=== PATIENT | male | born 1950 | race Caucasian/White ===

== ENCOUNTER 2017-06-16 09:36 | Observation (INO) | payer MEDICARE, OTHER ==
[~2017-06-16] VITALS: Ht 200.7 cm; Wt 95.5 kg
[2017-06-16] VITALS (7 sets, daily range): BP systolic 124–168; BP diastolic 58–91; PULSE 59–84; RESP 18–20; TEMP 96.4–97.6; O2SAT 93–95
[~2017-06-16 09:36] MED LIST: CENTTAB9 PO
[2017-06-16] MEDS ORDERED: MULT-65 PO (09:48)
[2017-06-16 10:09] LABS: AUTOMATED NEUTROPHIL # 5.3 TH/MM3 (1.8-7.7); BASOPHIL % 0.5 % (0.0-2.0); EOSINOPHIL # 0.2 TH/MM3 (0-0.4); HEMATOCRIT 48.5 % (39.0-51.0); HEMOGLOBIN 16.6 GM/DL (13.0-17.0); LYMPH % 19.2 % (9.0-44.0); LYMPHOCYTE # 1.5 TH/MM3 (1.0-4.8); MEAN CELL VOLUME 93.4 FL (80.0-100.0); MEAN CORPUSCULAR HEMOGLOBIN 31.9 PG (27.0-34.0); MEAN CORPUSCULAR HGB CONC 34.2 % (32.0-36.0); MEAN PLATELET VOLUME 8.1 FL (7.0-11.0); MONO % 7.6 % (0.0-8.0); MONOCYTE # 0.6 TH/MM3 (0-0.9); NEUT % 70.7 % (16.0-70.0); PLATELET COUNT 199 TH/MM3 (150-450); RED BLOOD COUNT 5.19 MIL/MM3 (4.50-5.90); RED CELL DISTRIBUTION WIDTH 12.7 % (11.6-17.2); WHITE BLOOD COUNT 7.6 TH/MM3 (4.0-11.0)
[2017-06-16 10:25] LABS: CHLORIDE 107 MEQ/L (98-107); SODIUM (NA) 140 MEQ/L (136-145)
[2017-06-16 10:30] LABS: ALBUMIN 3.6 GM/DL (3.4-5.0); BICARBONATE 23.3 MEQ/L (21.0-32.0); BLOOD UREA NITROGEN 19 MG/DL (7-18); GLUCOSE,RANDOM 112 MG/DL (74-106)
[2017-06-16 10:33] LABS: ALT (GPT) 23 U/L (12-78); AST (GOT) 16 U/L (15-37)
[2017-06-16 10:34] LABS: TOTAL BILIRUBIN ADULT 0.7 MG/DL (0.2-1.0); TOTAL PROTEIN 7.1 GM/DL (6.4-8.2)
[2017-06-16 10:35] LABS: GLOMERULAR FILTRATION RATE 67 ML/MIN (>89)
[2017-06-16 10:36] LABS: ALKALINE PHOSPHATASE 85 U/L (45-117)
--- NOTE | 2017-06-16 10:36 | RADRPT ---
EXAM DATE/TIME: 06/16/2017 10:15 [facility] COMPARISON: No previous studies available for comparison. INDICATIONS : Dizziness with nausea and headache this am . RADIATION DOSE: 57.44 CTDIvol (mGy) MEDICAL HISTORY : Gastroesophageal reflux disease. SURGICAL HISTORY : None. ENCOUNTER: Initial ACUITY: 1 day PAIN SCALE: 5/10 LOCATION: Bilateral cranial TECHNIQUE: Multiple contiguous axial images were obtained of the head. Using automated exposure control and adj ustment of the mA and/or kV according to patient size, radiation dose was kept as low as reasonably a chievable to obtain optimal diagnostic quality images. DICOM format image data is available electro nically for review and comparison. FINDINGS: CEREBRUM: The ventricles are normal for age. No evidence of midline shift, mass lesion, hemorrhage or acute in farction. No extra-axial fluid collections are seen. POSTERIOR FOSSA: The cerebellum and brainstem are intact. The 4th ventricle is midline. The cerebellopontine angle i s unremarkable. EXTRACRANIAL: The visualized portion of the orbits is intact. SKULL: The calvaria is intact. No evidence of skull fracture. CONCLUSION: Normal examination for a patient of this age. Santos Gonzalez MD on June 16, 2017 at 10:33 Board Certified Radiologist. This report was verified electronically.
[2017-06-16 10:38] LABS: TROPONIN I LESS THAN 0.02 NG/ML (0.02-0.05)
[2017-06-16 10:58] LABS: BILIRUBIN, URINE NEG (NEG); BLOOD, URINE NEG (NEG); GLUCOSE,URINE NEG (NEG); KETONE, URINE NEG (NEG); NITRITE,URINE NEG (NEG); PH, URINE 6.5 (5.0-8.5); URINE COLOR YELLOW (YELLW/STRAW); URINE LEUKOCYTE ESTERASE NEG (NEG)
[2017-06-16 11:05] LABS: RBC, URINE 0-3 /hpf (0-3); SQUAMOUS EPITHELIAL CELL URINE 0-5 /hpf (0-5)
--- NOTE | 2017-06-16 11:05 | RADRPT ---
EXAM DATE/TIME: 06/16/2017 10:35 [facility] COMPARISON: No previous studies available for comparison. INDICATIONS : Dizziness, nausea, headache, left side neck pain. MEDICAL HISTORY : None. SURGICAL HISTORY : None. ENCOUNTER: Initial ACUITY: 1 day PAIN SCORE: 0/10 LOCATION: Bilateral chest FINDINGS: A single view of the chest demonstrates the lungs to be symmetrically aerated without evidence of mas s, infiltrate or effusion. Hyperaeration of both lung kelly. The cardiomediastinal contours are unre markable. Osseous structures are intact. CONCLUSION: No acute disease. Santos Gonzalez MD on June 16, 2017 at 11:03 Board Certified Radiologist. This report was verified electronically.
[2017-06-16] MEDS ORDERED: NALOXONE HCL 0.4 MG/ML AMP IV PUSH PRN (11:45)
[2017-06-16] MEDS ORDERED: SODIUM CHLORIDE 0.9% FLUSH 10 ML FLUSH IV FLUSH PRN (11:45)
[2017-06-16] MEDS ORDERED: ONDANSETRON HCL 4 MG/2 ML VIAL IVP PRN (11:45)
[2017-06-16] MEDS ORDERED: MAGNESIUM HYDROXIDE SUSP 30 ML CUP PO PRN (11:45)
--- NOTE | 2017-06-16 11:58 | PD ---
HPI Chief Complaint: Dizziness Time Seen by Provider: 09:41 Travel History International Travel<30 days: No Contact w/Intl Traveler<30days: No Traveled to known affect area: No History of Present Illness HPI This is a 67-year-old otherwise healthy male presented to the ER for dizziness. Patient states that he felt dizzy and spinning sensation this morning, lasted for about 5 minutes and then went away. Patient was afraid to fall so he "crawled" to open the door for paramedics and called 911. Patient reports that he felt dizzy yesterday as well by going away on its own. Patient states no blurred vision or headache or fever. He denies any chest pain or shortness of breath. Patient denies any palpitations or chest pain when the episodes comes PFS Past Medical History Arthritis: Yes Cancer: No Cardiovascular Problems: No Diabetes: No Glaucoma: No Gout: Yes Genitourinary: No Hepatitis: No Hiatal Hernia: No Hypertension: No Immune Disorder: No Medical other: Yes (LEFT EYE BLINDNESS FROM ) Musculoskeletal: Yes Neurologic: No Psychiatric: No Reproductive: No Respiratory: No Thyroid Disease: No Influenza Vaccination: Yes Past Surgical History Abdominal Surgery: No Cardiac Surgery: No Ear Surgery: No Endocrine Surgery: No Eye Surgery: No Genitourinary Surgery: No Gynecologic Surgery: No Oral Surgery: Yes (TEETH REMOVAL) Pacemaker: No Thoracic Surgery: No Other Surgery: Yes (HAND) Social History Alcohol Use: No Tobacco Use: No Substance Use: No Allergies-Medications (Allergen,Severity, Reaction): Coded Allergies: No Known Allergies (Verified Adverse Reaction, Unknown, 06/16/17) Reported Meds & Prescriptions Reported Meds & Active Scripts Active Reported Multi-Vitamin Daily (Multiple Vitamin) 1 Tab Tab 1 Tab PO DAILY Review of Systems Except as stated in HPI: all other systems reviewed are Neg Physical Exam Narrative GENERAL: Alert oriented 3 no acute distress SKIN: Focused skin assessment warm/dry. HEAD: Atraumatic. Normocephalic. EYES: Pupils equal and round. No scleral icterus. No injection or drainage. ENT: No nasal bleeding or discharge. Mucous membranes pink and moist. NECK: Trachea midline. No JVD. CARDIOVASCULAR: Regular rate and rhythm. No murmur appreciated. RESPIRATORY: No accessory muscle use. Clear to auscultation. Breath sounds equal bilaterally. GASTROINTESTINAL: Abdomen soft, non-tender, nondistended. Hepatic and splenic margins not palpable. MUSCULOSKELETAL: No obvious deformities. No clubbing. No cyanosis. No edema. NEUROLOGICAL: Awake and alert. No obvious cranial nerve deficits. Motor grossly within normal limits. Normal speech. PSYCHIATRIC: Appropriate mood and affect; insight and judgment normal. Data Data Last Documented VS Vital Signs Date Time Temp Pulse Resp B/P (MAP) Pulse Ox O2 Delivery O2 Flow Rate FiO2 06/16/17 10:07 84 18 158/70 (99) 93 Room Air 06/16/17 09:40 97.6 Orders Orders Complete Blood Count With Diff (06/16/17 09:53) Comprehensive Metabolic Panel (06/16/17 09:53) Troponin I (06/16/17 09:53) Urinalysis - C+S If Indicated (06/16/17 09:53) Chest, Single Ap (06/16/17 ) Ct Brain W/O Iv Contrast(Rout) (06/16/17 ) Admit Order (Ed Use Only) (06/16/17 11:41) Place In Observation (06/16/17 ) Vital Signs (Adult) Q4H (06/16/17 11:40) Activity Oob With Assistance (06/16/17 11:40) Digging Machine Operator / Telemetry .CONTINUOUS (06/16/17 11:40) Diet Heart Healthy (06/16/17 Lunch) Sodium Chloride 0.9% Flush (Ns Flush) (06/16/17 11:45) Sodium Chloride 0.9% Flush (Ns Flush) (06/16/17 21:00) Ondansetron Inj (Zofran Inj) (06/16/17 11:45) Comprehensive Metabolic Panel (06/17/17 06:00) Complete Blood Count With Diff (06/17/17 06:00) Enoxaparin Inj (Lovenox Inj) (06/16/17 11:45) Scd Bilateral/Knee High NATHAN.BID (06/16/17 11:40) Naloxone Inj (Narcan Inj) (06/16/17 11:45) Magnesium Hydroxide Liq (Milk Of Magnesi (06/16/17 11:45) Consult Cardiology (06/16/17 ) Labs Laboratory Tests Test 06/16/17 10:03 06/16/17 10:51 White Blood Count 7.6 TH/MM3 Red Blood Count 5.19 MIL/MM3 Hemoglobin 16.6 GM/DL Hematocrit 48.5 % Mean Corpuscular Volume 93.4 FL Mean Corpuscular Hemoglobin 31.9 PG Mean Corpuscular Hemoglobin Concent 34.2 % Red Cell Distribution Width 12.7 % Platelet Count 199 TH/MM3 Mean Platelet Volume 8.1 FL Neutrophils (%) (Auto) 70.7 % Lymphocytes (%) (Auto) 19.2 % Monocytes (%) (Auto) 7.6 % Eosinophils (%) (Auto) 2.0 % Basophils (%) (Auto) 0.5 % Neutrophils # (Auto) 5.3 TH/MM3 Lymphocytes # (Auto) 1.5 TH/MM3 Monocytes # (Auto) 0.6 TH/MM3 Eosinophils # (Auto) 0.2 TH/MM3 Basophils # (Auto) 0.0 TH/MM3 CBC Comment DIFF FINAL Differential Comment Blood Urea Nitrogen 19 MG/DL Creatinine 1.10 MG/DL Random Glucose 112 MG/DL Total Protein 7.1 GM/DL Albumin 3.6 GM/DL Calcium Level 9.0 MG/DL Alkaline Phosphatase 85 U/L Aspartate Amino Transf (AST/SGOT) 16 U/L Alanine Aminotransferase (ALT/SGPT) 23 U/L Total Bilirubin 0.7 MG/DL Sodium Level 140 MEQ/L Potassium Level 4.0 MEQ/L Chloride Level 107 MEQ/L Carbon Dioxide Level 23.3 MEQ/L Anion Gap 10 MEQ/L Estimat Glomerular Filtration Rate 67 ML/MIN Troponin I LESS THAN 0.02 NG/ML Urine Collection Type CLEAN CATCH Urine Color YELLOW Urine Turbidity CLEAR Urine pH 6.5 Urine Specific [place] 1.020 Urine Protein NEG mg/dL Urine Glucose (UA) NEG mg/dL Urine Ketones NEG mg/dL Urine Occult Blood NEG Urine Nitrite NEG Urine Bilirubin NEG Urine Urobilinogen 0.2 MG/DL Urine Leukocyte Esterase NEG Urine RBC 0-3 /hpf Urine Squamous Epithelial Cells 0-5 /hpf Microscopic Urinalysis Comment CULT NOT INDICATED Urine Collection Time 10:51 MDM Medical Decision Making Medical Screen Exam Complete: Yes Emergency Medical Condition: Yes Differential Diagnosis Arrhythmia, AV block, sick sinus syndrome, metabolic disturbance, sinus bradycardia. Narrative Course This is a 67-year-old male presented the ER complaining of dizziness episodes that has been going on for last 2 days. Patient had EKG here in the ER Q waves in leads V3 V4. Patient was here before for arrhythmia back in 2012 and he was evaluated for possible pacemaker. During this ER visit patient had one episode of bradycardia/arrhythmia on the Holter monitor that lasted for a few seconds patient will be admitted for further cardiac evaluation although patient did not have any symptoms during that episode. Patient will be admitted for further cardiac workup and possible pacemaker if needed. Diagnosis Primary Impression: Arrhythmia Qualified Codes: I49.9 - Cardiac arrhythmia, unspecified Additional Impression: Dizziness Admitting Information Admitting Physician Requests: Observation Condition: Stable Geovany Peterson MD Jun 16, 2017 11:58
[2017-06-16] MEDS: ENOXAPARIN SODIUM 40 MG/0.4 ML SYRINGE SQ SCH (12:26)
--- NOTE | 2017-06-16 13:40 | HHI.HP ---
[facility] Service [place] [facility] Primary Care Physician Unknown Admission Diagnosis DIZZINESS, DYSRHYSMIA Diagnoses: (1) Arrhythmia Diagnosis: Principal (2) Dizziness Diagnosis: Principal Travel History International Travel<30 Days: No Contact w/Intl Traveler <30 Da: No Traveled to Known Affected Are: No History of Present Illness Mr. Pope is a 67-year-old male. He was admitted secondary to dizziness. He has a past history of bradycardia which was borderline for qualification of pacemaker placement. At that time he was asymptomatic so it was opted to not place the pacemaker. He's been having dizzy episodes again. This may be related to recurrence of his bradycardia. His last episode was after he reported to the ER but he was not yet hooked up on telemetry. He has not had any symptoms since. Further monitoring is warranted. I do notice that he is having bradycardic pauses but his lowest rate that I have seen is in the 50s on telemetry and he is not reporting any symptoms during these pauses. He is being converted over to formal telemetry so that I can measure the duration of his pauses. No other complaints from the patient. No chest pain. Review of Systems Constitutional: DENIES: Fatigue, Fever, Chills Eyes: DENIES: Diplopia, Eye inflammation, Eye pain Ears, nose, mouth, throat: DENIES: Hearing loss, Vertigo, Nasal discharge Respiratory: DENIES: Cough, Wheezing, Shortness of breath Cardiovascular: DENIES: Chest pain, Palpitations, Syncope Gastrointestinal: DENIES: Abdominal pain, Black stools, Bloody stools Musculoskeletal: DENIES: Joint pain, Muscle aches, Stiffness, Joint Swelling, Back pain, Neck pain Integumentary: DENIES: Abnormal pigmentation, Nail changes, Pruritus, Rash Hematologic/lymphatic: DENIES: Bruising, Lymphadenopathy Immunologic/allergic: DENIES: Eczema, Urticaria Neurologic: DENIES: Abnormal gait, Headache, Paresthesias Psychiatric: DENIES: Anxiety, Confusion, Hallucinations Past Family Social History Past Medical History Neck Pain Hx of Bradycardic Arrhythmia Past Surgical History None Reported Medications Reported Meds & Active Scripts Active Reported Multi-Vitamin Daily (Multiple Vitamin) 1 Tab Tab 1 Tab PO DAILY Allergies: Coded Allergies: No Known Allergies (Verified Adverse Reaction, Unknown, 06/16/17) Active Ordered Medications Administered Medications Medications (Trade) Dose Ordered Sig/Dhaval Route PRN Reason Start Time Stop Time Status Last Admin Dose Admin Enoxaparin Sodium (Lovenox Inj) 40 mg Q24H SQ 06/16/17 12:00 06/16/17 12:26 Family History No diseases run in this patient's family Social History No smoking No alcohol abuse No illicit drug abuse Physical Exam Vital Signs Vital Signs Date Time Temp Pulse Resp B/P (MAP) Pulse Ox O2 Delivery O2 Flow Rate FiO2 06/16/17 12:11 06/16/17 12:10 70 18 168/80 (109) 94 Room Air 06/16/17 12:00 96.4 79 18 156/85 (108) 95 06/16/17 10:07 84 18 158/70 (99) 93 Room Air 06/16/17 09:44 68 Room Air 06/16/17 09:40 97.6 68 18 151/91 (111) 94 Physical Exam GENERAL: NAD, A&Ox3 HEAD: Normocephalic. NECK: Supple, trachea midline. No lymphadenopathy. EYES: No scleral icterus. No injection or drainage. CARDIOVASCULAR: Regular rate and rhythm without murmurs, gallops, or rubs. Cardiac Pauses intermittently. RESPIRATORY: Breath sounds equal bilaterally. No accessory muscle use. GASTROINTESTINAL: Abdomen soft, non-tender, nondistended. MUSCULOSKELETAL: No cyanosis, or edema. SKIN: Warm and dry. NEURO: No focal neurological deficitis. Laboratory Laboratory Tests Test 06/16/17 10:03 06/16/17 10:51 White Blood Count 7.6 Red Blood Count 5.19 Hemoglobin 16.6 Hematocrit 48.5 Mean Corpuscular Volume 93.4 Mean Corpuscular Hemoglobin 31.9 Mean Corpuscular Hemoglobin Concent 34.2 Red Cell Distribution Width 12.7 Platelet Count 199 Mean Platelet Volume 8.1 Neutrophils (%) (Auto) 70.7 Lymphocytes (%) (Auto) 19.2 Monocytes (%) (Auto) 7.6 Eosinophils (%) (Auto) 2.0 Basophils (%) (Auto) 0.5 Neutrophils # (Auto) 5.3 Lymphocytes # (Auto) 1.5 Monocytes # (Auto) 0.6 Eosinophils # (Auto) 0.2 Basophils # (Auto) 0.0 CBC Comment DIFF FINAL Differential Comment Blood Urea Nitrogen 19 Creatinine 1.10 Random Glucose 112 Total Protein 7.1 Albumin 3.6 Calcium Level 9.0 Alkaline Phosphatase 85 Aspartate Amino Transf (AST/SGOT) 16 Alanine Aminotransferase (ALT/SGPT) 23 Total Bilirubin 0.7 Sodium Level 140 Potassium Level 4.0 Chloride Level 107 Carbon Dioxide Level 23.3 Anion Gap 10 Estimat Glomerular Filtration Rate 67 Troponin I LESS THAN 0.02 Urine Collection Type CLEAN CATCH Urine Color YELLOW Urine Turbidity CLEAR Urine pH 6.5 Urine Specific [place] 1.020 Urine Protein NEG Urine Glucose (UA) NEG Urine Ketones NEG Urine Occult Blood NEG Urine Nitrite NEG Urine Bilirubin NEG Urine Urobilinogen 0.2 Urine Leukocyte Esterase NEG Urine RBC 0-3 Urine Squamous Epithelial Cells 0-5 Microscopic Urinalysis Comment CULT NOT INDICATED Urine Collection Time 10:51 Result Diagram: 06/16/17 1003 06/16/17 1003 Caprini VTE Risk Assessment Caprini VTE Risk Assessment: No/Low Risk (score <= 1) Caprini Risk Assessment Model Point Value = 1 Point Value = 2 Point Value = 3 Point Value = 5 Age 41-60 Minor surgery BMI > 25 kg/m2 Swollen legs Varicose veins or History of unexplained or recurrent spontaneous Oral contraceptives or hormone replacement Sepsis (< 1 month) Serious lung disease, including pneumonia (< 1 month) Abnormal pulmonary function Acute myocardial infarction Congestive heart failure (< 1 month) History of inflammatory bowel disease Medical patient at bed rest Age 61-74 Arthroscopic surgery Major open surgery (> 45 min) Laparoscopic surgery (> 45 min) Malignancy Confined to bed (> 72 hours) Immobilizing plaster cast Central venous access Age >= 75 History of VTE Family history of VTE Factor V Leiden Prothrombin [id number] Lupus anticoagulant Anticardiolipin antibodies Elevated serum homocysteine Heparin-induced thrombocytopenia Other congenital or acquired thrombophilia Stroke (< 1 month) Elective arthroplasty Hip, pelvis, or leg fracture Acute spinal cord injury (< 1 month) Prophylaxis Regimen Total Risk Factor Score Risk Level Prophylaxis Regimen 0-1 Low Early ambulation 2 Moderate Order ONE of the following: *Sequential Compression Device (SCD) *Heparin 5000 units SQ BID 3-4 Higher Order ONE of the following medications: *Heparin 5000 units SQ TID *Enoxaparin/Lovenox 40 mg SQ daily (WT < 150 kg, CrCl > 30 mL/min) *Enoxaparin/Lovenox 30 mg SQ daily (WT < 150 kg, CrCl > 10-29 mL/min) *Enoxaparin/Lovenox 30 mg SQ BID (WT < 150 kg, CrCl > 30 mL/min) AND/OR *Sequential Compression Device (SCD) 5 or more Highest Order ONE of the following medications: *Heparin 5000 units SQ TID (Preferred with Epidurals) *Enoxaparin/Lovenox 40 mg SQ daily (WT < 150 kg, CrCl > 30 mL/min) *Enoxaparin/Lovenox 30 mg SQ daily (WT < 150 kg, CrCl > 10-29 mL/min) *Enoxaparin/Lovenox 30 mg SQ BID (WT < 150 kg, CrCl > 30 mL/min) AND *Sequential Compression Device (SCD) Assessment and Plan Problem List: (1) Arrhythmia ICD Code: I49.9 - Cardiac arrhythmia, unspecified Status: Acute (2) Dizziness ICD Code: R42 - Dizziness and giddiness Status: Acute Assessment and Plan 67-year-old male admitted secondary to bradycardic arrhythmia. Symptoms of dizziness. Bradycardic arrhythmia Follow on telemetry Depending on findings, transfer to [facility] if pacemaker placement needed Avoid beta blockers Cardiology consulted No chest pain Follow for further dizziness Chronic Neck Pain As needed pain treatments, if needed. DVT Prophylaxis Lovenox Problem Qualifiers (1) Arrhythmia: Qualified Codes: I49.9 - Cardiac arrhythmia, unspecified Yared Briggs MD Jun 16, 2017 13:40
[2017-06-16] MEDS: SODIUM CHLORIDE 0.9% FLUSH 10 ML FLUSH IV FLUSH SCH (21:16)
[2017-06-17] VITALS: BP 123/61; PULSE 69; RESP 20; TEMP 97.5; O2SAT 99
[2017-06-17 04:00] VITALS: BP 136/65; PULSE 53; RESP 20; TEMP 96.1; O2SAT 94
[2017-06-17 06:39] LABS: BASOPHIL % 0.4 % (0.0-2.0); EOSINOPHIL # 0.2 TH/MM3 (0-0.4); EOSINOPHIL % 2.2 % (0.0-4.0); HEMATOCRIT 47.7 % (39.0-51.0); HEMOGLOBIN 15.8 GM/DL (13.0-17.0); LYMPH % 22.9 % (9.0-44.0); LYMPHOCYTE # 1.7 TH/MM3 (1.0-4.8); MEAN CELL VOLUME 93.7 FL (80.0-100.0); MEAN CORPUSCULAR HEMOGLOBIN 31.1 PG (27.0-34.0); MEAN CORPUSCULAR HGB CONC 33.2 % (32.0-36.0); MEAN PLATELET VOLUME 8.4 FL (7.0-11.0); MONO % 9.3 % (0.0-8.0); MONOCYTE # 0.7 TH/MM3 (0-0.9); NEUT % 65.2 % (16.0-70.0); PLATELET COUNT 206 TH/MM3 (150-450); RED BLOOD COUNT 5.09 MIL/MM3 (4.50-5.90); RED CELL DISTRIBUTION WIDTH 12.7 % (11.6-17.2); WHITE BLOOD COUNT 7.6 TH/MM3 (4.0-11.0)
[2017-06-17 06:41] LABS: CHLORIDE 109 MEQ/L (98-107); SODIUM (NA) 141 MEQ/L (136-145)
[2017-06-17 06:52] LABS: CALCIUM 9.2 MG/DL (8.5-10.1)
[2017-06-17 06:53] LABS: ALBUMIN 3.5 GM/DL (3.4-5.0); BICARBONATE 26.1 MEQ/L (21.0-32.0); BLOOD UREA NITROGEN 22 MG/DL (7-18); GLUCOSE,RANDOM 106 MG/DL (74-106)
[2017-06-17 06:56] LABS: ALT (GPT) 22 U/L (12-78); AST (GOT) 17 U/L (15-37); GLOMERULAR FILTRATION RATE 60 ML/MIN (>89)
[2017-06-17 06:57] LABS: TOTAL BILIRUBIN ADULT 0.7 MG/DL (0.2-1.0); TOTAL PROTEIN 6.9 GM/DL (6.4-8.2)
[2017-06-17 06:59] LABS: ALKALINE PHOSPHATASE 83 U/L (45-117)
[2017-06-17 08:00] VITALS: BP 143/80; PULSE 68; RESP 18; TEMP 98.9; O2SAT 94
--- NOTE | 2017-06-17 08:10 | PD.CONS ---
HPI Service Cardiology Physicians Consult Requested By Dr. Briggs Reason for Consult Dizziness, Bradycardia Primary Care Physician Dr. Mccord History of Present Illness Mr. Pope is a 67-year-old pleasant male, who follows regularly with us in the office. He was brought to the ER yesterday by EMS after complaints of dizziness. He reports he had to crawl on the floor to get his phone. He states he thinks it was caused by his neck pain, reports seeing the chiropractor every couple weeks. He reports that he also had some mild dizziness while eating breakfast at [employer] on Tuesday morning prior to this he had not had any dizziness. He denies any recent syncopal episodes, no chest pain or shortness of breath. He has a history of dilated aortic root. Had a 2 week outpatient monitoring engineer December 2015 that showed multiple pauses that occurred at night. In the past we have discussed the need for possible pacemaker down the road. He reports that he has not had any further dizziness since arriving to the ER yesterday (Femi Dilma BOBO) Review of Systems Consitutional: DENIES: Fatigue, Fever, Chills, Weight gain, Weight loss Eyes: COMPLAINS OF: Change in vision (Blind in left eye (chronic)) HEENT: COMPLAINS OF: Lightheadedness (none since arrival yesterday) Respiratory: DENIES: See HPI, Cough, Snoring, Shortness of breath, Wheezing, Sputum production Cardiovascular: DENIES: See HPI, Chest pain, Palpitations, Syncope, Tachycardia Genitourinary: DENIES: Urinary incontinence, Difficulty voiding Integumentary: DENIES: Rash Neurologic: DENIES: Tingling or numbness, Memory problems, Poor Balance, Stroke symptoms Musculoskeletal: DENIES: Joint pain, Muscle pain, Limited range of motion, Back pain Psychiatric: DENIES: Anxiety, Depression, Sleep disturbances Hematologic: DENIES: Bruising tendencies, Bleeding tendencies Endocrine: DENIES: Weight gain, Weight loss, Thyroid disease (FemiFatou Dilma BOBO) Past Family Social History Allergies: Coded Allergies: No Known Allergies (Verified Adverse Reaction, Unknown, 06/16/17) Past Medical History Syncope Bradycardia Dilated aortic root Aortic insufficiency Dyslipidemia Marfans syndrome Dupuytrens contracture Past Surgical History Tooth extraction Reported Medications Reported Meds & Active Scripts Active Reported Multi-Vitamin Daily (Multiple Vitamin) 1 Tab Tab 1 Tab PO DAILY Active Ordered Medications Current Medications Medications (Trade) Dose Ordered Sig/Dhaval Route Start Time Stop Time Status Last Admin (NS Flush) 2 ml UNSCH PRN IV FLUSH 06/16/17 11:45 (NS Flush) 2 ml BID IV FLUSH 06/16/17 21:00 06/16/17 21:16 (Zofran Inj) 4 mg Q6H PRN IVP 06/16/17 11:45 (Lovenox Inj) 40 mg Q24H SQ 06/16/17 12:00 06/16/17 12:26 (Narcan Inj) 0.4 mg UNSCH PRN IV PUSH 06/16/17 11:45 (Milk Of Magnesia Liq) 30 ml Q12H PRN PO 06/16/17 11:45 Social History Non smoker No ETOH abuse or drug use (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,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) Physical Exam Vital Signs Vital Signs Date Time Temp Pulse Resp B/P (MAP) Pulse Ox O2 Delivery O2 Flow Rate FiO2 06/17/17 04:00 96.1 53 20 136/65 (88) 94 06/17/17 00:00 97.5 69 20 123/61 (81) 99 06/16/17 20:00 97.4 64 20 124/58 (80) 93 06/16/17 20:00 73 06/16/17 16:00 97.6 59 18 138/67 (90) 95 06/16/17 12:37 75 06/16/17 12:11 06/16/17 12:10 70 18 168/80 (109) 94 Room Air 06/16/17 12:00 96.4 79 18 156/85 (108) 95 06/16/17 10:07 84 18 158/70 (99) 93 Room Air 06/16/17 09:44 68 Room Air 06/16/17 09:40 97.6 68 18 151/91 (111) 94 Physical Exam GENERAL:Well developed, well nourished, very tall, marfanoid, pleasant middle aged male HEAD: Normocephalic. NECK: Supple, trachea midline. No lymphadenopathy. EYES: No scleral icterus. No injection or drainage. CARDIOVASCULAR: Regular rate, bradycardic, mitral valve click RESPIRATORY: Breath sounds equal bilaterally. No accessory muscle use. GASTROINTESTINAL: Abdomen soft, non-tender, nondistended. MUSCULOSKELETAL: No cyanosis, or edema. SKIN: Warm and dry. NEURO: No focal neurological deficitis. Laboratory Laboratory Tests Test 06/16/17 10:03 06/16/17 10:51 06/17/17 06:24 White Blood Count 7.6 7.6 Red Blood Count 5.19 5.09 Hemoglobin 16.6 15.8 Hematocrit 48.5 47.7 Mean Corpuscular Volume 93.4 93.7 Mean Corpuscular Hemoglobin 31.9 31.1 Mean Corpuscular Hemoglobin Concent 34.2 33.2 Red Cell Distribution Width 12.7 12.7 Platelet Count 199 206 Mean Platelet Volume 8.1 8.4 Neutrophils (%) (Auto) 70.7 65.2 Lymphocytes (%) (Auto) 19.2 22.9 Monocytes (%) (Auto) 7.6 9.3 Eosinophils (%) (Auto) 2.0 2.2 Basophils (%) (Auto) 0.5 0.4 Neutrophils # (Auto) 5.3 5.0 Lymphocytes # (Auto) 1.5 1.7 Monocytes # (Auto) 0.6 0.7 Eosinophils # (Auto) 0.2 0.2 Basophils # (Auto) 0.0 0.0 CBC Comment DIFF FINAL DIFF FINAL Differential Comment Blood Urea Nitrogen 19 22 Creatinine 1.10 1.20 Random Glucose 112 106 Total Protein 7.1 6.9 Albumin 3.6 3.5 Calcium Level 9.0 9.2 Alkaline Phosphatase 85 83 Aspartate Amino Transf (AST/SGOT) 16 17 Alanine Aminotransferase (ALT/SGPT) 23 22 Total Bilirubin 0.7 0.7 Sodium Level 140 141 Potassium Level 4.0 4.1 Chloride Level 107 109 Carbon Dioxide Level 23.3 26.1 Anion Gap 10 6 Estimat Glomerular Filtration Rate 67 60 Troponin I LESS THAN 0.02 Urine Collection Type CLEAN CATCH Urine Color YELLOW Urine Turbidity CLEAR Urine pH 6.5 Urine Specific [place] 1.020 Urine Protein NEG Urine Glucose (UA) NEG Urine Ketones NEG Urine Occult Blood NEG Urine Nitrite NEG Urine Bilirubin NEG Urine Urobilinogen 0.2 Urine Leukocyte Esterase NEG Urine RBC 0-3 Urine Squamous Epithelial Cells 0-5 Microscopic Urinalysis Comment CULT NOT INDICATED Urine Collection Time 10:51 (Shadeed,Junejayne BOBO) Result Diagram: 06/17/17 0624 06/17/17 0624 Imaging Last [address] 06/16/17 0000 Signed Impressions: Service Date/Time: May 10:15 - CONCLUSION: Normal examination for a patient of this age. Santos Gonzalez MD Chest X-Ray 06/16/17 0000 Signed Impressions: Service Date/Time: May 10:35 - CONCLUSION: No acute disease. Santos Gonzalez MD (Fatou Kahn) Assessment and Plan Assessment and Plan Bradycardia Dizziness Diltated arotic root Plan Will continue to monitor closely on telemetry and avoid beta blockers, Will plan to discharge home later today and follow up in office early next week to discuss possible pacemaker placement. Dizziness has resolved Will plan to follow up with echo and monitoring engineer as outpatient The patient was seen by Dr. Mccord who completed face to face encounter and physical exam and participated in evaluation an management (Fatou Kahn) Assessment and Plan The exam, history, and the medical decision-making described in the above note were completed with the assistance of the mid-level provider. I reviewed and agree with the findings presented. I attest that I had a [id number] encounter with the patient on the same day, and personally performed and documented my assessment and findings in the medical record. will monitor until evening walk pt and see if dizziness correlates with low HR. Offered pacer , wants to hold off. We will meet in office next Tuesday and make a final decision. (Jess Mccord MD) Fatou Kahn Jun 17, 2017 08:10 Jess Mccord MD Jun 17, 2017 13:20
[2017-06-17] MEDS: SODIUM CHLORIDE 0.9% FLUSH 10 ML FLUSH IV FLUSH SCH (08:49)
[2017-06-17 09:20] VITALS: PULSE 65
--- NOTE | 2017-06-17 10:35 | HHI.PR ---
Objective Vital Signs Date Time Temp Pulse Resp B/P (MAP) Pulse Ox O2 Delivery O2 Flow Rate FiO2 06/17/17 09:20 65 06/17/17 04:00 96.1 53 20 136/65 (88) 94 06/17/17 00:00 97.5 69 20 123/61 (81) 99 06/16/17 20:00 97.4 64 20 124/58 (80) 93 06/16/17 20:00 73 06/16/17 16:00 97.6 59 18 138/67 (90) 95 06/16/17 12:37 75 06/16/17 12:11 06/16/17 12:10 70 18 168/80 (109) 94 Room Air 06/16/17 12:00 96.4 79 18 156/85 (108) 95 I/O 06/16/17 06/16/17 06/16/17 06/17/17 06/17/17 06/17/17 07:00 15:00 23:00 07:00 15:00 23:00 Intake Total 240 ml Output Total 300 ml Balance 240 ml -300 ml Intake Oral 240 ml Output Urine Total 300 ml # Voids 3 2 # Bowel Movements 1 0 Result Diagram: 06/17/17 0624 06/17/17 0624 A/P Problem List: (1) Arrhythmia ICD Code: I49.9 - Cardiac arrhythmia, unspecified Status: Acute (2) Dizziness ICD Code: R42 - Dizziness and giddiness Status: Acute Assessment and Plan 67-year-old male admitted secondary to bradycardic arrhythmia. Symptoms of dizziness. No recurrence of dizziness overnight. This was in a resting state. Patient worked with physical therapy today and did well. He is cleared for ad jez. ambulation. Continue to monitor telemetry setting of regular activity. Bradycardic arrhythmia Follow on telemetry Depending on findings, transfer to [facility] if pacemaker placement needed Avoid beta blockers Cardiology consulted No chest pain Follow for further dizziness Chronic Neck Pain As needed pain treatments, if needed. DVT Prophylaxis Lovenox Problem Qualifiers (1) Arrhythmia: Qualified Codes: I49.9 - Cardiac arrhythmia, unspecified Yared Briggs MD Jun 17, 2017 10:35
--- NOTE | 2017-06-17 11:06 | EKG ---
Date Performed: 06/16/2017 Time Performed: 09:43:07 PTAGE: 67 years EKG: Sinus rhythm LOW QRS VOLTAGE IN EXTREMITY LEADS ABNORMAL ECG PREVIOUS TRACING : 10/28/2012 19.39 Since the previous tracing, no significant change noted DOCTOR: Deonte Greene Interpretating Date/Time 06/17/2017 11:04:39
[2017-06-17] MEDS: ENOXAPARIN SODIUM 40 MG/0.4 ML SYRINGE SQ SCH (11:08)
[2017-06-17 12:00] VITALS: BP 135/72; PULSE 88; RESP 18; TEMP 98.9; O2SAT 95
--- NOTE | 2017-06-17 16:47 | HHI.DS ---
Discharge Summary Admission Date Jun 16, 2017 at 11:42 Discharge Date: Jun 17, 2017 Admitting Diagnosis DIZZINESS, DYSRHYSMIA (1) Arrhythmia ICD Code: I49.9 - Cardiac arrhythmia, unspecified Diagnosis: Principal Status: Acute (2) Dizziness ICD Code: R42 - Dizziness and giddiness Diagnosis: Principal Status: Acute Procedures none Brief History - From Admission Mr. Pope is a 67-year-old male. He was admitted secondary to dizziness. He has a past history of bradycardia which was borderline for qualification of pacemaker placement. At that time he was asymptomatic so it was opted to not place the pacemaker. He's been having dizzy episodes again. This may be related to recurrence of his bradycardia. His last episode was after he reported to the ER but he was not yet hooked up on telemetry. He has not had any symptoms since. Further monitoring is warranted. I do notice that he is having bradycardic pauses but his lowest rate that I have seen is in the 50s on telemetry and he is not reporting any symptoms during these pauses. He is being converted over to formal telemetry so that I can measure the duration of his pauses. No other complaints from the patient. No chest pain. CBC/BMP: 06/17/17 0624 06/17/17 0624 Significant Findings Laboratory Tests Test 06/16/17 10:03 06/16/17 10:51 06/17/17 06:24 Neutrophils (%) (Auto) 70.7 % (16.0-70.0) Blood Urea Nitrogen 19 MG/DL (7-18) 22 MG/DL (7-18) Random Glucose 112 MG/DL (74-106) Estimat Glomerular Filtration Rate 67 ML/MIN (>89) 60 ML/MIN (>89) Troponin I LESS THAN 0.02 NG/ML Monocytes (%) (Auto) 9.3 % (0.0-8.0) Chloride Level 109 MEQ/L (98-107) Hospital Course Mr. Pope is a 67-year-old male. He has a history of bradycardic arrhythmia and was a candidate for the pacemaker with his previous episode. At that time patient had declined. He came into the ER yesterday due to symptoms of dizziness. Bradycardia was suspected and patient has been monitored for 24 hours. He does have some positive durations are less than 3 seconds and he does not have any symptoms. He has not had any recurrence of his dizziness. Today he was converted to ambulatory and with walking around he has not had recurrence of symptoms. No immediate need for pacemaker at this time. At this point is medically cleared for discharge to home with a Holter monitor. The plan is that he will follow-up with cardiology in 5 days. Pt Condition on Discharge: Stable Discharge Disposition: Discharge Home Discharge Time: <= 30 minutes Discharge Instructions DIET: Follow Instructions for: As Tolerated, No Restrictions Activities you can perform: Regular-No Restrictions Follow up Referrals: Cardiology - 3-5 Days PCP Follow-up - 2 Weeks Continued Medications: Multiple Vitamin (Multi-Vitamin Daily) 1 Tab Tab 1 TAB PO DAILY for Nutritional Supplement, TAB 0 Refills Yared Briggs MD Jun 17, 2017 16:47
--- NOTE | 2017-06-21 16:30 | HM ---
Date Performed: 06/17/2017 Time Performed: 16:36:00 HOOKUP DATE: 06/17/17 04:36:00 PM Fri ANALYSIS START TIME: 06/17/2017 4:41:00 PM ANALYSIS END TIME: 06/18/2017 4:45:00 PM PATIENT AGE: 67 PATIENT HEIGHT PATIENT WEIGHT DRUG LIST PATIENT DIAGNOSIS: DIZZINESS TEST NARRATIVE: The patient's average heart rate was 74 BPM. Heart rates greater than 120 B PM were noted < 1% of the time. Heart rates less than 50 BPM were noted 4% of the time. 18 pause s exceeding 2.0 seconds were noted. The longest pause of 2.7 seconds occurred at 10:22:32 PM Fri. 18 ventricular ectopics, which represented < 1% of the total beat count, were noted. The highest v entricular ectopic frequency occurred from 09:00 AM to 10:00 AM Sat. During this time 4 VE(s) occurr ed. Ventricular ectopics were observed as 18 isolated beat(s) only. No couplets or runs were noted. 1462 supraventricular ectopics, which represented 1% of the total beat count, were noted. The h ighest supraventricular ectopic frequency occurred from 03:00 PM to 04:00 PM Sat. During this time 3 74 SVE(s) occurred. No episodes of ST depression (defined as -1.0 mm or more) were noted in chann el 1. No episodes of ST depression (defined as -1.0 mm or more) were noted in channel 2. No episode s of ST depression (defined as -1.0 mm or more) were noted in channel 3. NO DIARY RETURNED TEST INTERPRETATION: Pauses are noted, and clinical correlation is necessary. In addition, incre asing change in conduction pattern with sinus beats do seem to occur several times throughout the tra cing. I am unsure as to the significance of this; however, careful evaluation of EKG is recommended. Signed by : Kimo Neumann
== END 2017-06-17 18:27 | disposition home or self-care (01) ==
LOC: PHED 09:36 → PHEDA 11:42 → PH3A 12:15
PROVIDERS: ADMIT Hospitalist; ATTEND Hospitalist
DX: I49.9 Cardiac arrhythmia, unspecified (principal); R42 Dizziness and giddiness; R00.1 Bradycardia, unspecified; R94.31 Abnormal electrocardiogram [ECG] [EKG]; E78.5 Hyperlipidemia, unspecified; Q87.40 Marfan syndrome, unspecified; M54.2 Cervicalgia; G89.29 Other chronic pain; H54.62 Unqualified visual loss, left eye, normal vision right eye; M19.90 Unspecified osteoarthritis, unspecified site
CPT/HCPCS: 70450; 71045; 80053; 81001; 84484; 85025; 93005; 93225; 93226; 97161; 99285; G0378; G8987; G8988; J1650